=== PATIENT | female | born 1995 | race Caucasian/White ===

== ENCOUNTER → 2020-05-30 08:42 | Outpatient (CLI) | payer OTHER, SELFPAY ==
[2020-05-30 10:27] LABS: Glucose 94 mg/dL (70-100)
[2020-06-01 07:21] LABS: Insulin Level Total 18.2 uIU/mL (2.6-24.9)
== END ==
PROVIDERS: PCP Obstetrics & Gynecology; Referring Provider Obstetrics & Gynecology; Visit Provider Obstetrics & Gynecology
DX: E28.2 Polycystic ovarian syndrome (principal)
CPT/HCPCS: 36415; 82947; 83525

== ENCOUNTER → 2020-12-05 08:48 | Outpatient (CLI) | payer OTHER, SELFPAY ==
[2020-12-05 10:59] LABS: Follicle Stimulating Hormone 4.41 mIU/mL
== END ==
PROVIDERS: PCP Obstetrics & Gynecology; Referring Provider Obstetrics & Gynecology; Visit Provider Obstetrics & Gynecology
DX: E28.2 Polycystic ovarian syndrome (principal); R61 Generalized hyperhidrosis
CPT/HCPCS: 36415; 83001

== ENCOUNTER → 2020-12-22 09:45 | Outpatient (CLI) | payer OTHER, SELFPAY ==
--- NOTE | 2020-12-22 | DI.US.S_ITS ---
PROCEDURE: US RENAL COMPLETE INDICATIONS: Unspecified abdominal pain TECHNIQUE: Real-time scanning was performed of the kidneys and bladder, with image documentation. COMPARISON: None. FINDINGS: Kidneys: Kidneys are normal in size. Right kidney measures 11.6 cm long; left kidney measures 11.7 cm long. Right renal cortical thickness is 1.8 cm; left renal cortical thickness is 1.7 cm. Renal cortical echotexture is normal. No hydronephrosis or nephrolithiasis. No suspicious solid mass lesions. Bladder: Pre-void bladder volume is 24 mL. Post-void residual is 0 mL. Pre-void images demonstrate no intraluminal masses or stones. On pre-void images, both ureteral jets are noted with color Doppler interrogation. (Of note, ureteral jets may not be detectable in up to 25% of cases due to insufficient differences in specific gravity between ureteral and bladder urine). Miscellaneous: No free pelvic fluid. IMPRESSION: Negative study. No hydronephrosis. Dictated by: Karlos Quick M.D. on 12/22/2020 at 9:45 Approved by: Karlos Quick M.D. on 12/22/2020 at 9:45
== END ==
PROVIDERS: PCP Nurse Practitioner Primary Care; Referring Provider Nurse Practitioner Primary Care; Visit Provider Nurse Practitioner Primary Care
DX: R10.9 Unspecified abdominal pain (principal)
CPT/HCPCS: 76770

== ENCOUNTER → 2021-11-29 12:16 | Outpatient (CLI) | payer SELFPAY ==
[2021-11-29 13:43] LABS: Final Volume 0.5 mL; Semen 30 min. Liquification? Yes
== END ==
PROVIDERS: PCP Nurse Practitioner Primary Care; Referring Provider Obstetrics & Gynecology; Visit Provider Obstetrics & Gynecology
DX: N97.0 Female infertility associated with anovulation (principal)
CPT/HCPCS: 58323

== ENCOUNTER → 2022-01-07 11:14 | Outpatient (CLI) | payer OTHER, SELFPAY ==
[2022-01-07 13:12] LABS: HCG Quantitative /Beta subunit 48.3 mIU/mL
== END ==
PROVIDERS: PCP Nurse Practitioner Primary Care; Referring Provider Obstetrics & Gynecology; Visit Provider Obstetrics & Gynecology
DX: N91.2 Amenorrhea, unspecified (principal)
CPT/HCPCS: 36415; 84702

== ENCOUNTER → 2022-01-09 07:09 | Outpatient (CLI) | payer OTHER, SELFPAY ==
[2022-01-09 08:03] LABS: HCG Quantitative /Beta subunit 108.8 mIU/mL
== END ==
PROVIDERS: Referring Provider Obstetrics & Gynecology; Visit Provider Obstetrics & Gynecology
DX: N91.2 Amenorrhea, unspecified (principal)
CPT/HCPCS: 36415; 84702

== ENCOUNTER → 2022-02-25 16:14 | Outpatient (CLI) | payer OTHER, SELFPAY ==
[2022-02-25 17:11] LABS: Appearance Urine UA CLEAR; Bilirubin Urine UA NEGATIVE (NEGATIVE); Color Urine UA YELLOW; Glucose Urine UA NEGATIVE (Negative); Ketones Urine UA NEGATIVE (NEGATIVE); Leukocyte Esterase Urine UA NEGATIVE (NEGATIVE); Nitrite Urine UA NEGATIVE (Negative); Occult Blood Urine UA TRACE-LYSED (Negative); Protein Urine UA NEGATIVE (Negative); Specific Gravity Urine UA 1.025 (1.000-1.035); Urobilinogen Urine UA 0.2 E.U./dL (0.2)
[2022-02-25 17:15] LABS: Add Manual Diff / Slide Review NO; Basophils Absolute Auto 100 /uL (0-100); Basophils Percent Auto 0.7 % (0-2); Eosinophils Absolute Auto 100 /uL (0-450); Eosinophils Percent Auto 1.2 % (2-4); Hematocrit 36.9 % (36-46); Hemoglobin 12.7 g/dL (12.0-16.0); Lymphocytes Absolute Auto 2400 /uL (1100-4500); Lymphocytes Percent Auto 27.1 % (25-40); Mean Corpuscular HGB Conc 34.5 % (30-36); Mean Corpuscular Hemoglobin 29.1 PG (26-34); Mean Corpuscular Volume 84.5 fL (80-100); Monocytes Absolute Auto 400 /uL (0-900); Monocytes Percent Auto 4.5 % (3-14); Neutrophils Absolute Auto 5800 /uL (1500-7000); Neutrophils Percent Auto 66.5 % (50-75); Platelet Count 283 X10^3/uL (150-400); Red Blood Cell Count 4.36 X10^6/uL (4.0-5.2); Red Cell Distribution Width 13.5 % (11.6-14.8); White Blood Cell Count 8.8 X10^3/uL (4.5-11.0)
[2022-02-25 17:50] LABS: Rubella Antibody IgG 11.3 IU/mL (>15)
[2022-02-25 17:58] LABS: Hepatitis B Surface Antigen NEGATIVE s/c (NEGATIVE)
[2022-02-25 18:12] LABS: HIV 1 & 2 Ab/Ag 4th Gen Combo NEGATIVE (NEGATIVE); Hep C Virus Ab w/Reflex Quant NEGATIVE s/c (NEGATIVE)
[2022-02-26 06:25] LABS: RPR Screen Non Reactive (Non Reactive)
[2022-02-26 13:33] LABS: Varicella IgG Antibody 344 index (Immune >165)
== END ==
PROVIDERS: Referring Provider Obstetrics & Gynecology; Visit Provider Obstetrics & Gynecology
DX: Z34.01 Encounter for supervision of normal first pregnancy, first trimester (principal); Z3A.10 10 weeks gestation of pregnancy
CPT/HCPCS: 36415; 80055; 81003; 86787; 86803; 86850; 86900; 86901; 87086; 87389

== ENCOUNTER → 2022-04-23 09:16 | Outpatient (CLI) | payer OTHER, SELFPAY ==
[2022-04-25 21:06] LABS: AFP Value 58.9 ng/mL (.); Gest Age on Col Date 18.7 weeks (.); Insulin Dep Diabetes No (.); OSBR Risk 1IN 2212 (.); Results Report (.); Test Results *Screen Negative* (.)
== END ==
PROVIDERS: Referring Provider Obstetrics & Gynecology; Visit Provider Obstetrics & Gynecology
DX: Z34.02 Encounter for supervision of normal first pregnancy, second trimester (principal); Z3A.18 18 weeks gestation of pregnancy
CPT/HCPCS: 36415; 82105

== ENCOUNTER → 2022-05-01 09:23 | Outpatient (CLI) | payer OTHER, SELFPAY ==
--- NOTE | 2022-05-01 09:25 | DI.US.S_ITS ---
PROCEDURE: US OB >= 14 WEEKS FETUS INDICATIONS: Anatomy Scan OUTSIDE/PRIOR DATING DATA: Last menstrual period (LMP): 12/12/2021 LMP-based estimated date of delivery (JENNIFER): 09/18/2022 First dating scan (date and location): 01/21/2022 Estimated date of delivery (JENNIFER) from first dating scan: 09/17/2022 The calculations are made using the clinical JENNIFER of 09/18/2022. TECHNIQUE: Real-time scanning was performed of the fetus, with image documentation and biometric measurements. Endovaginal scanning: Not performed COMPARISON: [facility], , OB >= 14 WEEKS FETUS, 04/23/2022, 9:16. FINDINGS: General: A single living intrauterine gestation is present. Presentation: Variable Placenta: Placental position is anterior, without previa. Amniotic fluid index: 14.7 cm, normal range is 5-24 cm. Single deepest vertical pocket is 3.9 cm. heart rate: 150 beats per minute. Maternal cervical canal: 3.8 cm long. Normal lower limit is 2.5 cm. biometrics: Biparietal diameter: 4.8 cm, 20 weeks 4 days Head circumference: 18.0 cm, 20 weeks 3 days Abdominal circumference: 15.8 cm, 20 weeks 6 days Femur length: 3.1 cm, 19 weeks 4 days Clinically estimated gestational age: 20 weeks 0 days Composite gestational age from present scan: 20 weeks 3 days Estimated weight and percentile: 344 grams, 62nd percentile Anatomic survey: Neuro: Ventricles are non-dilated at less than 10 mm. Cisterna magna is normal at 3-11 mm. Cerebellum is normal in size and morphology. Nuchal skin fold: Normal at less than 6 mm between 14-21 weeks gestational age. Face: Nose and lips, facial profile are normal. Spine: No evidence for spina bifida. Heart: 4-chambered heart is present, with normal ventricular outflow tracts. Diaphragm: Diaphragm is intact. Stomach: Left-sided stomach is present. Kidneys: Kidneys are not visualized. Normal is less than 5 mm in 2nd trimester, less than 7 mm in 3rd trimester. Cord: 3-vessel cord has orthotopic insertion. Bladder: Normal in size. Extremities: All 4 extremities identified. IMPRESSION: 1. Single live intrauterine with appropriate growth. 2. kidneys are not well seen. Recommend follow-up exam. 3. anatomic survey is otherwise within normal limits. We strive to produce accurate, complete, and clear reports of imaging services. To assist us in improving patient care, this report was composed using standard report templates and voice recognition software. Therefore, it may contain abnormal punctuation, insertions and/or omissions. Occasional wrong-word or sound-alike substitutions may occur. Though we review the report and make efforts to correct it, we do recommend that the report be read carefully in proper context to recognize any text inaccuracies. Dictated by: Dedrick Vasquez M.D. on 05/01/2022 at 16:25 Approved by: Dedrick Vasquez M.D. on 05/01/2022 at 16:32
== END ==
PROVIDERS: Referring Provider Obstetrics & Gynecology; Visit Provider Obstetrics & Gynecology
DX: Z34.92 Encounter for supervision of normal pregnancy, unspecified, second trimester (principal); Z3A.20 20 weeks gestation of pregnancy
CPT/HCPCS: 76811

== ENCOUNTER → 2022-05-08 17:14 | Outpatient (CLI) | payer OTHER, SELFPAY ==
--- NOTE | 2022-05-08 17:17 | DI.US.S_ITS ---
PROCEDURE: US OB FOLLOW UP INDICATIONS: FU on kidneys OUTSIDE/PRIOR DATING DATA: Last menstrual period (LMP): 12/12/2021. LMP-based estimated date of delivery (JENNIFER): 09/18/2022. First dating scan (date and location): 01/21/2022. Estimated date of delivery (JENNIFER) from first dating scan: 09/17/2022. TECHNIQUE: Real-time scanning was performed of the fetus, with image documentation and biometric measurements. COMPARISON: None. FINDINGS: General: A single living intrauterine gestation is present. Presentation: Cephalic. Placenta: Placental position is anterior, without previa. Amniotic fluid index: 12.8 cm, normal range is 5-24 cm. Single deepest vertical pocket is 4 point cm. heart rate: 150 beats per minute. Maternal cervical canal: 4.0 cm long. Normal lower limit is 2.5 cm. Clinically estimated gestational age: 21 week 0 day Other: kidneys have normal appearance without evidence of hydronephrosis. Remaining visualized anatomy is within normal limits as well. IMPRESSION: Single live intrauterine consistent with 21 week 0 day gestation. Visualized anatomy including both kidneys are within normal limits Approved by: Demetrius Rosado M.D. on 05/09/2022 at 10:03
== END ==
PROVIDERS: Referring Provider Obstetrics & Gynecology; Visit Provider Obstetrics & Gynecology
DX: Z34.90 Encounter for supervision of normal pregnancy, unspecified, unspecified trimester (principal); Z3A.22 22 weeks gestation of pregnancy
CPT/HCPCS: 76816

== ENCOUNTER → 2022-06-03 08:44 | Outpatient (CLI) | payer OTHER, SELFPAY ==
[2022-06-03 10:57] LABS: Hematocrit 35.4 % (36-46)
[2022-06-03 11:30] LABS: GTT (PREG) 1 Hour PP 50gm Dose 159 mg/dL (76-139)
== END ==
PROVIDERS: Referring Provider Obstetrics & Gynecology; Visit Provider Obstetrics & Gynecology
DX: Z34.02 Encounter for supervision of normal first pregnancy, second trimester (principal); Z3A.26 26 weeks gestation of pregnancy
CPT/HCPCS: 36415; 82950; 85014; 85018

== ENCOUNTER 2022-06-04 10:30 | Outpatient (RCR) | payer OTHER, SELFPAY ==
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
--- NOTE | 2022-04-25 17:54 | PT.OPPOC ---
Physical, Occupational & Speech Therapy At [facility] Current Diagnoses Myalgia, other site (04/25/22) Other specified diseases and conditions complicating (04/25/22) Visit Care Team Role Provider Type Cece Quigley MD Attending Provider Physician Primary Care Provider Referring Provider Specialty: Gynecology CARTRIDGE BELT PUNCHER Obstetrics Address: [address] [place] [address], [facility] Email: [email or web address] Plan Of Care PT-OP-T Assessment and Plan Start: 04/25/22 12:43 Freq: Status: Active Protocol: Document 04/25/22 15:32 LRN (Rec: 04/25/22 17:50 LRN [id number]) Physical Therapy Assessment Rehab Potential Rehabilitation Potential Good Evaluation Complexity Number of Personal Factors/Comorbidities 1-2 Number of Body Systems Impaired 4 or More Clinical Presentation at Evaluation Evolving Impairments Impairments Activity Tolerance,Balance, Pain,Posture,ROM,Strength, Transfers Goals Three Impairment L SIJ Pain and numbness in L lateral thigh. Short Term Goal (STG) Pt will obtain a SI belt to decrease SIJ pain 50% with movement. STG Duration 06/09/22 Care Home Goal (LTG) Improve L SIJ and core stability along with wearing of SIJ belt to eliminate L low back/SIJ pain and L lateral thigh numbness onset with walking and cooking activities . LTG Duration 07/24/22 Two Impairment Groin pain (L>R). Short Term Goal (STG) Pt will be educated in proper transfers and nighttime positioning to relieve groin pain. 04/25/22: Pt educated in proper stand<>sit<>supine transfers, and for scooting side to side in bed. Pt educated in nighttime positioning to try to see if she can gain nighttime relief. ) STG Duration 05/03/22 (04/25/22: Partially met goal) Care Home Goal (LTG) Decrease bilateral groin pain with occasional onset knowledge to modify activities to prevent onset of pain. LTG Duration 07/24/22 One Impairment Lacks appropriate self mcc program. Impairment Postural changes with . Poor sitting and standing posture. Poor body mechanics. Lacks hip mobility exercises and core/hip stabilization exercises. Short Term Goal (STG) Pt will be educated in proper postural changes with with recommendations of modification to posture as progresses. Education and training in proper sitting/standing posture. Education in proper body mechanics. STG Duration 05/03/22 Bottling Line Operator Goal (LTG) Pt will be educated in a self care HEP to improve symmetry of hip and low back mobility and for improved core stabilization to help decrease pain onset with movement. LTG Duration 07/24/22 Assessment Summary Assessment Pt is ~20 weeks gestation with first . She demonstrates pubic symphysis and groin pain (L>R), and L SIJ pain with a sacral R rotation. She has notable postural changes and poor body mechanics at rest in sitting, standing and supine. The pt will benefit from skilled physical therapy for focus on improving her body mechanics and posturing in all positions , improved hip mobility and core/hip stabilization to decrease pain. Pt education will be focused on proper transfers, self care and home exercises. The pt will be started at 2 times/week for self care education and exercise, then decreased to 1x /week for progression of her home program and following the pt through her as needed. Physical Therapy Plan Frequency and Duration Frequency of Treatment 2x/Week Plan of Care Start Date 04/25/22 Plan of Care End Date 06/09/22 Therapeutic Interventions Therapeutic Interventions Aquatic Therapy,Home Exercise Program,Joint Mobilizations, Manual Therapy,Neuromuscular Re-education,Patient/Caregiver Education,Self-Care/Home Management,Soft Tissue Mobilization,Taping, Therapeutic Activities, Therapeutic Exercises Modalities Cold Pack/Ice Massage,Hot Packs Next Visit Focus/Plan Next Note Type Treatment Note Next Visit Plan Assess for proper transfer techniques and symmetry with sitting/standing. Education/Discuss supports and issue handouts. Further education/training on proper posturing in stand/sit with handout and balance ex's for changing center of gravity . Assess for Sacral balancing and manual for correcting R rot sacrum. Therapeutic Ex: Hip AB/ER strengthening, L hip IR and trunk ROM ( ex's), Core & L SIJ stabilization. Plan of Care Dates Plan of Care Start Date 04/25/22 Plan of Care End Date 06/09/22 Electronically Signed by: Beena Frazier, PT 04/25/22 [id number] If you are in agreement with this Plan of Care, please return a signed and dated copy. I have reviewed this Plan of Care and certify that the skilled therapy services above are required to meet the patient?s needs. Physician Signature Date Printed Name and Credentials Clinical Instructor Signature Printed Name and Credentials
--- NOTE | 2022-04-25 18:07 | PT-OP ANOTE ---
Per phone, recommended pt order [employer] online for SIJ pain. Information was given regarding SIJ belt and website. Pt to try to order before next appt.
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
--- NOTE | 2022-04-29 17:39 | PT.OPPOC ---
Physical, Occupational & Speech Therapy At [facility] Current Diagnoses Myalgia, other site (04/29/22) Other specified diseases and conditions complicating (04/29/22) Visit Care Team Role Provider Type Cece Quigley MD Attending Provider Physician Primary Care Provider Referring Provider Specialty: Gynecology EMERGENCY MEDICINE SPECIALIST Obstetrics Address: [address] [place] [address], [facility] Email: [email or web address] Plan Of Care PT-OP-T Assessment and Plan Start: 04/25/22 12:43 Freq: Status: Active Protocol: Document 04/29/22 09:02 LRN (Rec: 04/29/22 09:49 LRN [id number]) Physical Therapy Assessment Rehab Potential Rehabilitation Potential Good Evaluation Complexity Number of Personal Factors/Comorbidities 1-2 Number of Body Systems Impaired 4 or More Clinical Presentation at Evaluation Evolving Impairments Impairments Activity Tolerance,Balance, Pain,Posture,ROM,Strength, Transfers Goals Three Impairment L SIJ Pain and numbness in L Short Term Goal (STG) Pt will obtain a SI belt to decrease SIJ pain 50% with movement. STG Duration 06/09/22 Motor Room Controller Goal (LTG) Improve L SIJ and core stability along with wearing of SIJ belt to eliminate L low back/SIJ pain and L lateral thigh numbness onset with walking and cooking activities . LTG Duration 07/24/22 Two Impairment Groin pain (L>R). Short Term Goal (STG) Pt will be educated in proper transfers and nighttime positioning to relieve groin pain. 04/25/22: Pt educated in proper stand<>sit<>supine transfers, and for scooting side to side in bed. Pt educated in nighttime positioning to try to see if she can gain nighttime relief. ) 04/29/22: Review of proper stand<>sit<>supine transfers) STG Duration 05/03/22 (04/25/22: Partially met goal) Motor Room Controller Goal (LTG) Decrease bilateral groin pain with occasional onset knowledge to modify activities to prevent onset of pain. LTG Duration 07/24/22 One Impairment Lacks appropriate self chcf program. Impairment Postural changes with . Poor sitting and standing posture. Poor body mechanics. Lacks hip mobility exercises and core/hip stabilization exercises. Short Term Goal (STG) Pt will be educated in proper postural changes with with recommendations of modification to posture as progresses. Education and training in proper sitting/standing posture. Education in proper body mechanics. STG Duration 05/03/22 Fdc Goal (LTG) Pt will be educated in a self care HEP to improve symmetry of hip and low back mobility and for improved core stabilization to help decrease pain onset with movement. 04/29/22: HEP: Quinten Barba. LTG Duration 07/24/22 (04/29/22: Progressed) Assessment Summary Assessment Pt is ~20 weeks ~3 days gestation with first . Pubic symphysis and groin pain (L>R) that has lessened, and L SIJ pain with a sacral R rotation. Her pain is slightly less with pt adhereing to proper transfers as trained. The pt will benefit from continued therapy beyond issuance of SI Belt as previously discussed, with extension of plan of care 2+ additional months to follow the pt through 1x/week to address needs of her ongoing . Today the pt demonstrates improved knowledge of proper body mechanics and posturing in all positions, and as previously mentioned has had a decrease in pubic/groin pain. a ice pack strap as a trial substitue for an SI belt was applied and the pt did find greater relief from her pain and a feeling of stability in her pelvis; therefore use of a belt will be beneficial to the pt in reducing pain and improving pelvic stability. Pt feeling unsure of self mob of pelvis; therefore will probably not do self corrections. Physical Therapy Plan Frequency and Duration Frequency of Treatment 2x/Week Plan of Care Start Date 04/25/22 Plan of Care End Date 07/24/22 Therapeutic Interventions Therapeutic Interventions Aquatic Therapy,Home Exercise Program,Joint Mobilizations, Manual Therapy,Neuromuscular Re-education,Patient/Caregiver Education,Self-Care/Home Management,Soft Tissue Mobilization,Taping, Therapeutic Activities, Therapeutic Exercises Modalities Cold Pack/Ice Massage,Hot Packs Next Visit Focus/Plan Next Note Type Treatment Note Next Visit Plan Assess for 2nd time proper transfer techniques and symmetry in standing with sitting/standing. Further education/training on proper posturing in stand/sit with handout and balance ex's for changing center of gravity . Monitor for SIJ dyfunction (anter rot R innominate) and correct as needed. Assess for Sacral balancing and manual for correcting R rot sacrum. Therapeutic Ex: Hip AB/ER strengthening, L hip IR and trunk ROM ( ex's), Core & L SIJ stabilization. Plan of Care Dates Plan of Care Start Date 04/25/22 Plan of Care End Date 07/24/22 Electronically Signed by: Beena Frazier, PT 04/29/22 3346 If you are in agreement with this Plan of Care, please return a signed and dated copy. I have reviewed this Plan of Care and certify that the skilled therapy services above are required to meet the patient?s needs. Physician Signature Date Printed Name and Credentials Clinical Instructor Signature Printed Name and Credentials
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
== END 2022-07-11 13:47 | disposition home or self-care (01) ==
LOC: PHYS 10:30
PROVIDERS: PCP Obstetrics & Gynecology; Referring Provider Obstetrics & Gynecology; Visit Provider Obstetrics & Gynecology
DX: O99.891 Other specified diseases and conditions complicating pregnancy (principal); M79.18 Myalgia, other site
CPT/HCPCS: 97110; 97113; 97140; 97161; 97535

== ENCOUNTER → 2022-06-24 14:29 | Outpatient (CLI) | payer OTHER, SELFPAY ==
[2022-06-26 04:36] LABS: Candida species Negative (Negative); Gardnerella vaginalis Negative (Negative); Trichomoas vaginalis Negative (Negative)
== END ==
PROVIDERS: Visit Provider Obstetrics & Gynecology
DX: O26.899 Other specified pregnancy related conditions, unspecified trimester (principal); N89.8 Other specified noninflammatory disorders of vagina; Z3A.27 27 weeks gestation of pregnancy
CPT/HCPCS: 87086; 87480; 87510; 87660

== ENCOUNTER → 2022-06-25 07:57 | Outpatient (CLI) | payer OTHER, SELFPAY ==
[2022-06-25 09:51] LABS: Glucose Fasting Gestational 91 mg/dL (76-95)
[2022-06-25 11:03] LABS: Glucose 2 Hour Gest 159 mg/dL (76-155)
[2022-06-25 11:22] LABS: Glucose Tol Interp,Gestational INTERPRETATION
[2022-06-25 13:30] LABS: Glucose 3 Hour Gest 122 mg/dL (76-140)
[2022-06-25 16:08] LABS: Glucose 1 Hour Gest 166 mg/dL (76-180)
== END ==
PROVIDERS: Referring Provider Obstetrics & Gynecology; Visit Provider Obstetrics & Gynecology
DX: O99.810 Abnormal glucose complicating pregnancy (principal)
CPT/HCPCS: 36415; 82951; 82952